=== PATIENT | male | born 1960 | race Caucasian/White ===

== ENCOUNTER 2020-02-29 03:27 | Emergency (ER) | payer OTHER ==
[~2020-02-29] VITALS: Ht 180.3 cm; Wt 74.3 kg
[~2020-02-29 03:27] MED LIST: ASPI81TA45 PO; ATEN25TA PO; BUSP5TAB2 PO; FLUO20CA23 PO; HYDR25TA6 PO; LISI-170 PO; LORA-446 PO; MULT-750 PO; OMEP-110 PO
[2020-02-29] MEDS ORDERED: LORazepam 1MG TABLET PO ONE (04:00)
[2020-02-29] MEDS ORDERED: LORazepam 1MG TABLET ONE (04:07)
--- NOTE | 2020-02-29 04:14 | NUR ---
PT TO ED WITH C/O ANXIETY AND RUNNING OUT OF MEDICATIONS. REPORTS HE COULD NOT SLEEP TONIGHT AND THOUGHT HIS BP WAS HIGH. DENIES ANY RECENT ILLNESS, FEVER, CHEST PAIN OR SHORTNESS OF BREATH. SKIN PWD AND RESP EASY/UNLABORED.
[2020-02-29 04:29] VITALS: BP 110/70
== END 2020-02-29 04:34 ==
LOC: ED 04:16
DX: F41.1 Generalized anxiety disorder (principal); I10 Essential (primary) hypertension; Z87.891 Personal history of nicotine dependence; Z76.0 Encounter for issue of repeat prescription
CPT/HCPCS: 99283

== ENCOUNTER 2020-03-04 02:28 | Emergency (ER) | payer OTHER ==
[~2020-03-04] VITALS: Ht 180.3 cm; Wt 74.3 kg
--- NOTE | 2020-03-04 02:45 | NUR ---
PATIENT STATED THAT HE HAD HIGH BP AT HOME. PATIENT SEEN IN ED THIS WEEK. PATIENT STATED THAT HE HAS NOT HAD A HISTORY OF HIGH BP. CURRENTLY TAKING LISINOPRIL, AND CLONIDINE AT HOME. STATES HE HAS BEEN TENSE, HAS HISTORY OF ANXIETY. TOOK ATIVAN AND CLONIDINE YESTERDAY DURING OCCURANCE.
[2020-03-04 03:20] LABS: BASOPHILS # (AUTO) 0.03 x10^3/uL (0-0.1); BASOPHILS % (AUTO) 0 % (0-1); EOSINOPHILS # (AUTO) 0.08 x10^3/uL (0-0.4); EOSINOPHILS % (AUTO) 1 % (1-7); LYMPHOCYTES % (AUTO) 26 % (22-44); MD NO; MEAN CORPUSCULAR HEMOGLOBIN 32.4 pg (27.5-34.5); MEAN CORPUSCULAR HGB CONC 33.9 g/dL (33.2-36.2); MEAN CORPUSCULAR VOLUME 95.7 fL (81-97); MEAN PLATELET VOLUME 7.2 fL (7.4-10.4); MONOCYTES # (AUTO) 0.56 x10^3/uL (0.2-0.8); MONOCYTES % (AUTO) 8 % (2-9); NEUTROPHILS % (AUTO) 64 % (42-75); PLATELET COUNT 266 x10^3/uL (130-400); RED BLOOD COUNT 4.73 x10^6/uL (4.38-5.82)
[2020-03-04 03:28] LABS: ALBUMIN 3.7 g/dL (3.4-5.0); ANION GAP 10 mmol/L (5-15); CHLORIDE 106 mmol/L (98-107); CREATININE 0.96 mg/dL (0.7-1.3)
[2020-03-04 03:32] LABS: TROPONIN I < 0.015 ng/mL (0.000-0.045)
[2020-03-04 03:50] VITALS: BP 177/101
--- NOTE | 2020-03-04 04:23 | NUR ---
UPON DISCHARGE. PATIENT STATED THAT HE WANTED AN ADDITIONAL PRESCRIPTION FOR ATIVAN BECAUSE HE WAS ALMOST OUT OF THE ATIVAN HE WAS GIVEN WITH LAST ER VISIT. EDUCATION REGARDING PROPER FOLLOW-UP CARE AND SELF CARE AT HOME. PATIENT GIVEN INFORMATION REGARDING REQUIRED FOLLOW UP FOR ATIVAN, AND NEED FOR PRIMARY CARE PROVIDER. MARGUERITE VERBALIZED UNDERSTANDING, STATING "WE'LL THIS STUFF WORKS, SO I'LL BE BACK WHEN I RUN OUT.". AMBULATORY WITHOUT COMPLICATIONS TO WAITING ROOM.
== END 2020-03-04 04:24 | disposition home or self-care (01) ==
LOC: ED 03:17
DX: I10 Essential (primary) hypertension (principal); I25.2 Old myocardial infarction; R94.31 Abnormal electrocardiogram [ECG] [EKG]; F41.9 Anxiety disorder, unspecified; Z87.891 Personal history of nicotine dependence
CPT/HCPCS: 36415; 80048; 82040; 84484; 85025; 93005; 99284

== ENCOUNTER 2021-04-05 02:55 | Emergency (ER) | payer OTHER ==
[~2021-04-05] VITALS: Ht 180.3 cm; Wt 73.5 kg
[~2021-04-05 02:55] MED LIST changes: +MULT-482 PO; -MULT-750 PO
--- NOTE | 2021-04-05 03:09 | NUR ---
Patient presents to ER c/o HTN. Patient states he has had gen weakness and "I can usually tell when I have HTN." Also c/o anxiety attacks with hx of same. Denies CP. Used to take meds for BP but took himself off. Lisinopril, Clonidine, Paroxetine Patient in NAD. Respirations even and unlabored.
[2021-04-05 03:12] VITALS: BP 221/138
[2021-04-05] MEDS ORDERED: LISINOPRIL 20 MG TABLET ONE (03:17)
[2021-04-05] MEDS ORDERED: LORazepam 1MG TABLET ONE (03:17)
[2021-04-05] MEDS ORDERED: LORazepam 1MG TABLET PO ONE (03:30)
[2021-04-05] MEDS ORDERED: LISINOPRIL 20 MG TABLET PO ONE (03:30)
--- NOTE | 2021-04-05 03:36 | NUR ---
Patient/Caregiver given discharge instructions and they have confirmed that they understand the instructions. Patient ambulatory with steady gait. NAD, all questions answered appropriately, denies additional needs at this time. No personal belongings left in room after discharge.
== END 2021-04-05 03:39 | disposition home or self-care (01) ==
LOC: ED 03:03
DX: F41.1 Generalized anxiety disorder (principal); I10 Essential (primary) hypertension; R94.31 Abnormal electrocardiogram [ECG] [EKG]
CPT/HCPCS: 93005; 99283